=== PATIENT | male | born 1955 | race Caucasian/White ===

== ENCOUNTER → 2018-06-07 | Outpatient (CLI) | payer BC ==
[2018-06-07 11:53] LABS: HCT 48.1 % (39.0-53.0); HGB 15.8 gm/dL (13.0-17.5); MCH 29.5 pg (25.0-35.0); MCHC 32.9 g/dL (31.0-37.0); MCV 89.6 fL (80.0-100.0); Mean Platelet Volume 8.3; Platelet Count 398 k/uL (150-450); RBC 5.37 m/uL (4.30-5.90); RDW 14.7 % (11.5-15.5); WBC 6.1 k/uL (3.8-10.6)
[2018-06-07 11:58] LABS: Appearance,Urine Clear (Clear); Bilirubin,Urine Negative (Negative); Blood,Urine Negative (Negative); Color,Urine Yellow; Glucose,Urine (UA) Negative (Negative); Ketones,Urine Negative (Negative); Leukocyte Esterase,Urine Negative (Negative); Nitrite,Urine Negative (Negative); PH, Urine 6.5 (5.0-8.0); Protein,Urine Negative (Negative); Specific Gravity,Urine 1.015 (1.001-1.035); Urobilinogen,Urine <2.0 mg/dL (<2.0)
[2018-06-07 12:00] LABS: ALT 46 U/L (21-72); AST 29 U/L (17-59); Albumin 4.1 g/dL (3.5-5.0); Alkaline Phosphatase 63 U/L (38-126); Anion Gap 4 mmol/L; Blood Urea Nitrogen 18 mg/dL (9-20); Calcium 9.5 mg/dL (8.4-10.2); Carbon Dioxide 32 mmol/L (22-30); Chloride 104 mmol/L (98-107); Glucose 93 mg/dL (74-99); Sodium 140 mmol/L (137-145)
[2018-06-07 12:01] LABS: INR 2.3 (<1.2); Partial Thromboplastin Time 35.4 sec (22.0-30.0); Prothrombin Time 22.8 sec (9.0-12.0)
== END | disposition home or self-care (01) ==
LOC: LABWHC1 10:26
PROVIDERS: ATTEND Orthopaedic Surgery
DX: Z01.812 Encounter for preprocedural laboratory examination (principal); M16.11 Unilateral primary osteoarthritis, right hip
CPT/HCPCS: 36415; 80053; 81003; 85027; 85610; 85730; 87070

== ENCOUNTER 2018-06-14 05:48 | Inpatient (IN) | payer BC ==
[~2018-06-14 05:48] MED LIST: ACETAMINOPHEN TAB 500 MG TAB PO ONE; MELOXICAM 7.5 MG TAB PO ONE; TRANEXAMIC ACID 1,000 MG in SODIUM CHLORIDE 0.9% 100 ML IVPB ONE; ceFAZolin IN SWFI 2 GM/20 ML SYRINGE IVP ONE
[2018-06-14] MEDS ORDERED: ROPIVACAINE 246.25 MG, EPINEPHrine 0.5 MG, KETOROLAC 30 MG, cloNIDine HCL/PF 80 MCG, WA... MISCELLANE ONE ×5 (05:56)
[2018-06-14] MEDS ORDERED: DEXAMETHASONE SOD PHOSPHATE 10 MG/ML 1 ML VIAL IV ONE (06:19)
[2018-06-14] MEDS ORDERED: ONDANSETRON 4 MG/2 ML VIAL IVP ONE (06:19)
[2018-06-14] MEDS ORDERED: LIDOCAINE 1% 20 ML VIAL (10MG/ML) FOR IV START INTRADERMA PRN (06:19)
[2018-06-14] MEDS ORDERED: HYDROmorphone 0.5 MG/0.5 ML SYRINGE IVP PRN ×3 (06:19→06:57)
[2018-06-14] MEDS: LACTATED RINGERS 1,000 ML IV SCH (06:40)
[2018-06-14 06:47] LABS: Prothrombin Time 10.6 sec (9.0-12.0)
[2018-06-14] MEDS ORDERED: HYDROcodone/APAP 5-325MG 1 EACH TAB PO PRN (06:57)
[2018-06-14] MEDS ORDERED: ONDANSETRON 4 MG/2 ML VIAL IVP PRN (06:57)
[2018-06-14] MEDS ORDERED: DIAZEPAM 5 MG TAB PO PRN (06:57)
[2018-06-14] MEDS ORDERED: NALOXONE 0.4 MG/ML 1 ML VIAL IV PRN (06:57)
[2018-06-14] MEDS ORDERED: MAGNESIUM HYDROXIDE 2,400 MG/10 ML CUP PO PRN (06:57)
[2018-06-14] MEDS ORDERED: hydrOXYzine PAMOATE 25 MG CAP PO PRN (06:57)
[2018-06-14] MEDS ORDERED: TRANEXAMIC ACID 1,000 MG/10 ML VIAL ONE (07:00)
[2018-06-14] MEDS ORDERED: GLYCOPYRROLATE 0.2 MG/ML 2 ML VIAL ONE (07:00)
[2018-06-14] MEDS ORDERED: SODIUM CHLORIDE 0.9% 100 ML BAG ONE (07:00)
[2018-06-14] MEDS ORDERED: fentaNYL (PF) 50 MCG/ML 2 ML AMP ONE (07:00)
[2018-06-14] MEDS ORDERED: LACTATED RINGERS 1,000 ML BAG IV ONE (07:00)
[2018-06-14] MEDS ORDERED: MIDAZOLAM 2 MG/2 ML VIAL ONE (07:00)
[2018-06-14] MEDS ORDERED: diphenhydrAMINE 50 MG/ML 1 ML VIAL ONE (07:00)
[2018-06-14] MEDS ORDERED: HEPARIN SODIUM,PORCINE 10,000 UNIT/ML 1 ML VIAL ONE (07:00)
[2018-06-14] MEDS ORDERED: ePHEDrine SULFATE/0.9% NACL/PF 50 MG/5 ML SYRINGE IV ONE (07:00)
[2018-06-14] MEDS ORDERED: ceFAZolin 3,000 MG in SODIUM CHLORIDE 0.9% IRRIGATIO 3,000 ML IRRIGATION ONE (07:40)
--- NOTE | 2018-06-14 08:43 | XR ---
Limited right hip HISTORY: Hip replacement 2 intraoperative C-arm images document the procedure.
--- NOTE | 2018-06-14 08:45 | FL ---
Fluoroscopy HISTORY: Anterior hip replacement 63 seconds fluoroscopy time supplied to the referring clinician. 2 intraoperative C-arm images docum ent the procedure. See dictated report from orthopedic surgery.
--- NOTE | 2018-06-14 08:49 | P.OP ---
Date of Procedure: 06/14/18 Preoperative Diagnosis: Severe osteoarthritis right hip Postoperative Diagnosis: Severe osteoarthritis right hip Procedure(s) Performed: Right total hip arthroplasty with a direct anterior approach Implants: Wiseman and nephew Polarstem size 5 standard Wiseman & Nephew R3, 3 hole acetabular shell, 54 mm Wiseman [employer] Nephew reflection 6.5 mm cancellus screw, 20 mm 2 Wiseman [employer] Nephew R3, XLPE 20 acetabular liner Wiseman & Nephew Oxinium femoral head 36 m, +4 All components were press-fit. The articulation is Oxinium on polyethylene. Anesthesia: spinal Surgeon: Britton Duron Garage Worker #1: Trina Delgadillo Estimated Blood Loss (ml): 900 (365 mL returned with Cell Saver) Pathology: other (Femoral head) Condition: stable Disposition: PACU Indications for Procedure: After failure of conservative treatment we discussed the surgical and nonsurgical treatment options at length. Patient wishes to proceed with a total hip arthroplasty with a direct anterior approach. Complications specific to this procedure were discussed at length, including but not limited to infection, leg length discrepancy, dislocation, and nerve injury. Patient is aware of all these complications and informed consent was obtained Operative Findings: The operative findings are consistent with severe osteoarthritis of the right hip Description of Procedure: Patient was seen and evaluated in the preoperative area, consent was reviewed, and the surgical site was marked with a skin marker. Patient was then brought to the operating room and given prophylactic antibiotics intravenously. 1 g of Tranexamic acid was also given. A spinal anesthetic was administered by the anesthesia department. The patient was then placed on the Cherokee table with the bony prominences well-padded. The hip area was then prepped and draped in usual sterile fashion. A universal timeout was then performed, which confirmed the patient's name, surgical site, ALLERGIES, and procedure being performed. Next the incision site was located at 1 cm distal and 1 cm lateral to the anterior superior iliac spine. The skin and subcutaneous tissues were sharply incised. Incision was carefully dissected down to the fascia overlying the tensor fascia eunice muscle. This fascia was then incised in line with the incision. Next, using blunt finger dissection, the tensor fascia eunice muscle was dissected off its investing fascia. The muscle was then carefully retracted laterally with a cobra retractor over the lateral neck of the femur. Next, the circumflex vessels were identified and cauterized using the AquaMantis device. The anterior hip capsule was then exposed. The capsule was then opened and an inverted T fashion. Cobra retractors were then placed intracapsularly. The proximal femur was then visualized. The femoral neck was then osteotomized appropriate level above the lesser trochanter. Small amount of traction was placed with the Cherokee table. A small wedge of bone was then removed from the remaining femoral head. Next, using a corkscrew femoral head was easily removed from the acetabulum. On gross visual inspection, the femoral head had complete loss of articular cartilage in m ultiple periarticular osteophytes. Attention was then turned to the acetabulum. the acetabulum was exposed and any remaining labrum was excised. Sequential reaming of the acetabulum was performed using fluoroscopic guidance. When the appropriate size was reached, a trial was then placed. The position and fit of the trial was checked with fluoroscopy. The trial was then removed. Then, using fluoroscopic guidance, the final implant was impacted at 20 of anteversion and 40 of abduction, and fully seated in the acetabulum. 2 screws were then placed in the acetabulum. Again fluoroscopy was used to check position of the screws. Next, the liner was then impacted, with a 20 elevated liner located in the anterior superior quadrant. Component locking was confirmed. Attention was then directed to the femur. With the aid of the Cherokee table, the femur was externally rotated to approximately 130, extended, and abducted under the opposite leg. A side hook was then placed under the proximal femur, and the side hook elevator was used to elevate the proximal femur. Retractors were then placed. A capsular release was performed, as well as a release of the conjoined tendon, which afforded excellent visualization of the proximal femur. Next, a box osteotome was used to lateralize the proximal femur. A sample maker hand was then used to locate the femoral canal. Sequential broaching was then performed with appropriate size which afforded excellent fixation in the proximal femur. A trial was then placed with appropriate head and neck, and the hip was gently reduced with the aid of the Cherokee table. Fluoroscopy was then used to check position of the components, as well as to ensure equal leg lengths. The hip was then gently dislocated and the trials were then removed. Final implants were then impacted and the hip was again reduced. Final fluoroscopic x-rays confirmed that the components were in anatomic position, as well as equal leg lengths. The hip was also taken through range of motion, and found to be stable. The hip was then copiously irrigated with antibiotic solution with pulsatile lavage. The hip was then irrigated with Irrisept solution. The soft tissues were then injected with a ropivacaine solution, which consisted of 246.25 mg of ropivacaine, 0.5 mg of epinephrine, 30 mg of Toradol, 80 g of clonidine, and 48.45 mL of sterile water, for a total of 100 mL of fluid injected. A second dose of 1 g of Tranexamic acid was also given. the fascia was then closed with 2-0 strata fix suture. The subcutaneous tissue was closed with 3-0 Vicryl. The subcuticular tissue was closed with 3-0 strata fix suture. The skin was then closed with Dermabond glue and a sterile silver dressing. The patient was then transferred to the recovery room in stable c ondition. The medical assistant per diem SHAHEED Thurman was required due to the complexity of surgery, and the need for skilled expanded function dental assistant for positioning, draping, exposure, retraction, and closure of the wound.
--- NOTE | 2018-06-14 09:31 | XR ---
Limited right hip HISTORY: Status post right hip arthroplasty Single frontal view of the right hip Patient is post right hip arthroplasty. There is anatomic alignment. Lucency present in the soft tiss ues. Probable vascular calcifications also seen. IMPRESSION: Orthopedic follow-up.
[2018-06-14 10:02] VITALS: BMI 34.7
[2018-06-14] MEDS: HYDROcodone/APAP 5-325MG 1 EACH TAB PO PRN ×2 (11:16→19:19)
[2018-06-14] MEDS ORDERED: SODIUM CHLORIDE 0.9% 500 ML IV ONE (11:26)
[2018-06-14] MEDS: SODIUM CHLORIDE 0.9% 1,000 ML IV SCH ×2 (11:28→23:10)
--- NOTE | 2018-06-14 14:17 | P.CONS ---
History of Present Illness - Reason for Consult Consult date: 06/14/18 Medical management - History of Present Illness This is a 62-year-old male patient of Dr. Greene with a past medical history of DVT with first episode 39 years ago and DVT with pulmonary embolism in 2005 on Coumadin with Lovenox as bridge prior to surgery, osteoarthritis, benign prostatic hypertrophy, gastroesophageal reflux disease, hypertension not on medication, COPD, remote history of tobacco use and dependence. Patient has been brought into hospital by Dr. Duron status post right total hip arthroplasty with anterior approach. Patient has been afebrile, heart rate in the 50s, blood pressure 97/58, pulse ox 93% on room air. Patient had one episode of vomiting in OR and denies nausea at this time. Patient denies any lightheadedness or dizziness. Review of Systems All systems: negative Constitutional: Denies anorexia, Denies chills, Denies fatigue, Denies fever, Denies malaise, Denies poor appetite, Denies weight loss Eyes: denies blurred vision, denies pain Ears, nose, mouth and throat: Denies dental pain, Denies dysphagia, Denies headache, Denies mouth pain, Denies sore throat, Denies vertigo Cardiovascular: Denies chest pain, Denies decreased exercise tolerance, Denies dyspnea on exertion, Denies leg edema, Denies lightheadedness, Denies paroxysmal nocturnal dyspnea, Denies shortness of breath, Denies syncope Respiratory: Denies cough, Denies cough with sputum, Denies dyspnea, Denies excessive sputum, Denies hemoptysis, Denies home oxygen, Denies sleep apnea, Denies wheezing Gastrointestinal: Denies abdominal pain, Denies diarrhea, Denies loss of appetite, Denies melena, Denies nausea, Denies vomiting Genitourinary: Denies dysuria, Denies hematuria, Denies urinary frequency, Denies urinary retention Musculoskeletal: Denies frequent falls, Denies gait dysfunction, Denies myalgias Integumentary: Reports wounds, Denies pruritus, Denies rash Neurological: Denies aphasia, Denies change in mentation, Denies confusion, Denies double vision, Denies numbness, Denies vertigo, Denies weakness Psychiatric: Denies anxiety, Denies depression Endocrine: Denies fatigue, Denies weight change Past Medical History Past Medical History: Deep Vein Thrombosis (DVT), Pulmonary Embolus (PE) Additional Past Medical History / Comment(s): DVT&PE-2005,varicose veins History of Any Multi-Drug Resistant Organisms: None Reported Past Surgical History: Joint Replacement, Orthopedic Surgery Additional Past Surgical History / Comment(s): rt knee x2,rt knee replaced, right total hip replacement anterior approach. Past Anesthesia/Blood Transfusion Reactions: No Reported Reaction Additional Past Anesthesia/Blood Transfusion Reaction / Comm: no blood transfusion Smoking Status: Former smoker Additional Past Alcohol Use History / Comment(s): Patient was a smoker of one pack per day for 33 years and quit in 2005. He denies any illicit drug use, marijuana use or alcohol use. Patient does not have oxygen, nebulizers CPAP. - Past Family History Mother Family Medical History: No Reported History Additional Family Medical History / Comment(s): Mother is 87 years of age with history of hypertension and CABG. Father Family Medical History: Cancer Additional Family Medical History / Comment(s): Father at age 67 from lung cancer. Sister(s) Additional Family Medical History / Comment(s): Patient has 3 sisters with no major medical problems. Patient is 2 brothers with no major medical problems. Patient has 2 daughters with no major medical problems. Medications and Allergies Home Medications Medication Instructions Recorded Confirmed Type Citalopram Hydrobromide 20 mg PO HS 06/03/18 06/14/18 History [Citalopram HBr] Enoxaparin [Lovenox] 100 mg SQ DAILY 06/03/18 06/14/18 History Simvastatin [Zocor] 20 mg PO HS 06/03/18 06/14/18 History Warfarin [Coumadin] 5 mg PO FR 06/03/18 06/14/18 History Warfarin [Coumadin] 10 mg PO SUMOTUWETHSA 06/03/18 06/14/18 History Allergies Allergy/AdvReac Type Severity Reaction Status Date / Time No Known Allergies Allergy Verified 06/14/18 10:02 Physical Exam Vitals: Vital Signs Temp Pulse Pulse Resp BP BP Pulse Ox 06/14/18 09:40 51 L 16 97/58 93 L 06/14/18 09:25 54 L 16 95/60 92 L 06/14/18 09:10 56 L 16 96/60 94 L 06/14/18 08:55 98 F 61 16 96/58 93 L 06/14/18 06:21 97.8 F 55 L 16 142/81 96 Intake and Output 06/13/18 06/14/18 06/14/18 22:59 06:59 14:59 Intake Total 50 801 Output Total 900 Balance 50 -99 Intake: IV 50 801 Output: Estimated Blood Loss 900 Gen: This is a 62-year-old male patient. Patient is resting in bed and appears to be comfortable and in no acute distress. HEENT: Head is atraumatic, normocephalic. Pupils equal, round. Sclerae is anicteric. NECK: Supple. No JVD. No lymphadenopathy. No thyromegaly. LUNGS: Clear to auscultation. No wheezes or rhonchi. No intercostal retractions. HEART: Regular rate and rhythm. No murmur. ABDOMEN: Soft. Bowel sounds are present. No masses. No tenderness. EXTREMITIES: No pedal edema. No calf tenderness. Small wound to right anterior hip. No breakthrough bleeding or drainage. NEUROLOGICAL: Patient is awake, alert and oriented x3. Cranial nerves 2 through 12 are grossly intact. Assessment and Plan Plan: 1. Osteoarthritis status post right total knee arthroplasty, anterior approach. Continue current pain management per orthopedics. Continue PT OT and activity per orthopedics. Incentive spirometry to reduce incidence of atelectasis and hospital-acquired pneumonia. DVT prophylaxis is Coumadin. 2. History of DVT and pulmonary embolism on chronic Coumadin. Coumadin resumed. 3. Remote history of tobacco use and dependence, stable. 4. Hypertension, not on medication. Patient is currently hypotensive. 500 mL fluid bolus. 5. Benign prostatic hypertrophy. Monitor for urinary retention. 6. Gastroesophageal reflux disease and GI prophylaxis. Pepcid. 7. DVT prophylaxis. Coumadin. Discharge plan: To be determined Impression and plan of care have been directed as dictated by the signing physician. Kalpana Yusuf nurse practitioner acting as scribe for signing physician.
[2018-06-14] MEDS: HYDROmorphone 1 MG/ML 1 ML SYRINGE IVP PRN (15:56)
[2018-06-14] MEDS: ceFAZolin IN SWFI 2 GM/20 ML SYRINGE IVP SCH ×2 (16:32→23:10)
[2018-06-14] MEDS ORDERED: WARFARIN 10 MG TAB PO ONE (18:00)
[2018-06-14] MEDS: ENOXAPARIN 120 MG/0.8 ML SYRINGE SQ SCH (20:00)
[2018-06-14] MEDS ORDERED: SENNOSIDES-DOCUSATE SODIUM 1 EACH TAB PO SCH (21:00)
[2018-06-15] MEDS: HYDROcodone/APAP 5-325MG 1 EACH TAB PO PRN ×3 (00:23→13:09)
[2018-06-15] MEDS: HYDROmorphone 1 MG/ML 1 ML SYRINGE IVP PRN (03:54)
[2018-06-15 07:45] LABS: Prothrombin Time 10.7 sec (9.0-12.0)
[2018-06-15 07:56] LABS: Basophils % (A) 0 %; Eosinophils # (A) 0.1 k/uL (0-0.7); Eosinophils % (A) 1 %; HCT 37.9 % (39.0-53.0); Lymphocytes # (A) 0.8 k/uL (1.0-4.8); Lymphocytes % (A) 9 %; MCH 29.5 pg (25.0-35.0); MCHC 32.4 g/dL (31.0-37.0); MCV 90.9 fL (80.0-100.0); Mean Platelet Volume 7.6; Monocytes # (A) 0.7 k/uL (0-1.0); Monocytes % (A) 8 %; Neutrophils % (A) 81 %; Platelet Count 395 k/uL (150-450); RBC 4.17 m/uL (4.30-5.90); RDW 14.8 % (11.5-15.5); WBC 8.7 k/uL (3.8-10.6)
[2018-06-15 07:58] LABS: Anion Gap 4 mmol/L; Blood Urea Nitrogen 17 mg/dL (9-20); Calcium 8.8 mg/dL (8.4-10.2); Carbon Dioxide 29 mmol/L (22-30); Chloride 103 mmol/L (98-107); Glucose 120 mg/dL (74-99); Potassium 4.6 mmol/L (3.5-5.1); Sodium 136 mmol/L (137-145)
[2018-06-15 07:59] VITALS: RESP 17
[2018-06-15 08:00] LABS: HGB 12.3 gm/dL (13.0-17.5)
[2018-06-15] MEDS: ENOXAPARIN 120 MG/0.8 ML SYRINGE SQ SCH (08:00)
[2018-06-15] MEDS ORDERED: FAMOTIDINE 20 MG TAB PO SCH (09:00)
--- NOTE | 2018-06-15 09:28 | P.PN ---
Subjective Progress Note Date: 06/15/18 This is a 62-year-old male who is status post right total hip arthroplasty. This is postoperative day #1 and patient is seen and evaluated at bedside with Dr. Britton Duron. Patient states that his pain is very well controlled and he has been up and walking with physical therapy. Patient does complain of urinary retention and states that he required straight catheterization 2 times overnight. Patient states that this has happened to him previously after his knee replacement. Patient denies any fever/chills, numbness, weakness, tingling, abdominal pain, shortness of breath or chest pain. Objective - Vital Signs Vital signs: Vital Signs Temp 99.6 F 06/15/18 07:00 Pulse 74 06/15/18 07:00 Resp 17 06/15/18 07:00 BP 108/50 06/15/18 07:00 Pulse Ox 92 L 06/15/18 07:00 Intake & Output 06/14/18 06/15/18 06/15/18 18:59 06:59 18:59 Intake Total 1721 210 Output Total 1600 650 Balance 121 -440 Intake: IV 801 Intake, IV Titration 210 Amount Sodium Chloride 0.9% 1, 210 000 ml @ 70 mls/hr IV . [id number] [facility] Rx#:[id number] Oral 920 Output: Urine 700 650 Straight 700 650 Estimated Blood Loss 900 - Exam Vital signs are stable. Patient is in no acute distress and is alert and oriented 3. Calf is soft and nontender to palpation. Dressing is clean, dry, and intact. Patient has full foot and ankle motion without pain or difficulty. Neurovascular status and circulatory status are intact. - Labs CBC & Chem 7: 06/15/18 07:04 06/15/18 07:04 Labs: Abnormal Lab Results - Last 24 Hours (Table) 06/15/18 06/15/18 Range/Units 07:04 07:04 RBC 4.17 L (4.30-5.90) m/uL Hgb 12.3 L D (13.0-17.5) gm/dL Hct 37.9 L (39.0-53.0) % Lymphocytes # 0.8 L (1.0-4.8) k/uL Sodium 136 L (137-145) mmol/L Glucose 120 H (74-99) mg/dL Assessment and Plan Assessment: Benign prosthetic hyperplasia GERD History of DVT and PE in 2006 Hypercholesterolemia Plan: Continue routine postop care and pain control. Continue anticoagulation, patient is on Coumadin. Weightbearing as tolerated with a walker. Leave dressing in place for 10 days. Appreciate input from medicine regarding urinary retention. Possible discharge home with homecare today if patient is able to void, otherwise possibly tomorrow.
[2018-06-15] MEDS: LACTATED RINGERS 1,000 ML IV SCH (09:42)
[2018-06-15] MEDS ORDERED: TAMSULOSIN 0.4 MG CAP.ER.24H PO STA (11:26)
[2018-06-15] MEDS: BETHANECHOL 25 MG TAB PO SCH ×2 (12:12→17:04)
[2018-06-15] MEDS ORDERED: BETHANECHOL 25 MG TAB PO STA (14:15)
[2018-06-15] MEDS: SODIUM CHLORIDE 0.9% 1,000 ML IV SCH (14:24)
--- NOTE | 2018-06-15 15:45 | P.PN ---
Subjective Progress Note Date: 06/15/18 This is a 62-year-old male patient of Dr. Greene with a past medical history of DVT with first episode 39 years ago and DVT with pulmonary embolism in 2005 on Coumadin with Lovenox as bridge prior to surgery, osteoarthritis, benign prostatic hypertrophy, gastroesophageal reflux disease, hypertension not on medication, COPD, remote history of tobacco use and dependence. Patient has been brought into hospital by Dr. Duron status post right total hip arthroplasty with anterior approach. Patient has been afebrile, heart rate in the 50s, blood pressure 97/58, pulse ox 93% on room air. Patient had one episode of vomiting in OR and denies nausea at this time. Patient denies any lightheadedness or dizziness. 06/15: Patient has been afebrile, heart rate running in the 50s to 70s, pulse ox 92% on room air, blood pressure 108/50. White count is normal, hemoglobin 12.3, creatinine 0.73, blood sugar 120. Patient has been cleared for discharge by orthopedics. Patient has required straight cath and Jacobson catheter was placed for urinary retention. We'll plan to discontinue this and start the patient on Flomax 0.4 mg daily and Urecholine. Patient to be monitored until later this afternoon, check post void residual and discharged home. INR is 1.0. Patient to continue Coumadin and Lovenox. Review of Systems All systems: negative Constitutional: Denies anorexia, Denies chills, Denies fatigue, Denies fever, Denies malaise, Denies poor appetite, Denies weight loss Eyes: denies blurred vision, denies pain Ears, nose, mouth and throat: Denies dental pain, Denies dysphagia, Denies headache, Denies mouth pain, Denies sore throat, Denies vertigo Cardiovascular: Denies chest pain, Denies decreased exercise tolerance, Denies dyspnea on exertion, Denies leg edema, Denies lightheadedness, Denies paroxysmal nocturnal dyspnea, Denies shortness of breath, Denies syncope Respiratory: Denies cough, Denies cough with sputum, Denies dyspnea, Denies excessive sputum, Denies hemoptysis, Denies home oxygen, Denies sleep apnea, Denies wheezing Gastrointestinal: Denies abdominal pain, Denies diarrhea, Denies loss of appetite, Denies melena, Denies nausea, Denies vomiting Genitourinary: Denies dysuria, Denies hematuria, Denies urinary frequency, reports urinary retention Musculoskeletal: Denies frequent falls, Denies gait dysfunction, Denies myalgias Integumentary: Reports wounds, Denies pruritus, Denies rash Neurological: Denies aphasia, Denies change in mentation, Denies confusion, Denies double vision, Denies numbness, Denies vertigo, Denies weakness Psychiatric: Denies anxiety, Denies depression Endocrine: Denies fatigue, Denies weight change Objective - Vital Signs Vital signs: Vital Signs Temp 99.6 F 06/15/18 07:00 Pulse 74 06/15/18 07:00 Resp 17 06/15/18 07:40 BP 108/50 06/15/18 07:00 Pulse Ox 92 L 06/15/18 07:00 Intake & Output 06/14/18 06/15/18 06/15/18 18:59 06:59 18:59 Intake Total 1721 210 Output Total 1600 650 Balance 121 -440 Intake: IV 801 Intake, IV Titration 210 Amount Sodium Chloride 0.9% 1, 210 000 ml @ 70 mls/hr IV . [id number] [facility] Rx#:[id number] Oral 920 Output: Urine 700 650 Straight 700 650 Estimated Blood Loss 900 Other: Voiding Method Indwelling Catheter - Exam Gen: This is a 62-year-old male patient. Patient is resting in bed and appears to be comfortable and in no acute distress. HEENT: Head is atraumatic, normocephalic. Pupils equal, round. Sclerae is anicteric. NECK: Supple. No JVD. No lymphadenopathy. No thyromegaly. LUNGS: Clear to auscultation. No wheezes or rhonchi. No intercostal retractions. HEART: Regular rate and rhythm. No murmur. ABDOMEN: Soft. Bowel sounds are present. No masses. No tenderness. EXTREMITIES: No pedal edema. No calf tenderness. Small wound to right anterior hip. No breakthrough bleeding or drainage. NEUROLOGICAL: Patient is awake, alert and oriented x3. Cranial nerves 2 through 12 are grossly intact. - Labs CBC & Chem 7: 06/15/18 07:04 06/15/18 07:04 Labs: Abnormal Lab Results - Last 24 Hours (Table) 03/13/19 03/13/19 Range/Units 07:04 07:04 RBC 4.17 L (4.30-5.90) m/uL Hgb 12.3 L D (13.0-17.5) gm/dL Hct 37.9 L (39.0-53.0) % Lymphocytes # 0.8 L (1.0-4.8) k/uL Sodium 136 L (137-145) mmol/L Glucose 120 H (74-99) mg/dL Assessment and Plan Plan: 1. Osteoarthritis status post right total knee arthroplasty, anterior approach. Continue current pain management per orthopedics. Continue PT OT and activity per orthopedics. Incentive spirometry to reduce incidence of atelectasis and hospital-acquired pneumonia. DVT prophylaxis is Coumadin. 2. History of DVT and pulmonary embolism on chronic Coumadin. Coumadin resumed. 3. Remote history of tobacco use and dependence, stable. 4. Hypertension, not on medication. Patient is currently hypotensive. 500 mL fluid bolus. 5. Benign prostatic hypertrophy. Monitor for urinary retention. 6. Gastroesophageal reflux disease and GI prophylaxis. Pepcid. 7. DVT prophylaxis. Coumadin. 8. Urinary retention. Urecholine and Flomax started. Discharge plan: home Impression and plan of care have been directed as dictated by the signing physician. Kalpana Yusuf nurse practitioner acting as scribe for signing physician.
[2018-06-15 15:58] VITALS: BP 111/65; PULSE 70; TEMP 98
[2018-06-15] MEDS ORDERED: WARFARIN 10 MG TAB PO ONE (18:00)
[2018-06-16] MEDS ORDERED: TAMSULOSIN 0.4 MG CAP.ER.24H PO SCH (08:30)
== END 2018-06-15 17:17 | disposition home health service (06) | DRG 470 ==
LOC: 2ORMAIN 05:48 → 4SSUR 09:11
PROVIDERS: ADMIT Orthopaedic Surgery; ATTEND Orthopaedic Surgery
PROC: 30233N0 Transfusion of Autologous Red Blood Cells into Peripheral Vein, Percutaneous Approach (ICD-10-PCS; 2018-06-14)
PROC: 0SR906A Replacement of Right Hip Joint with Oxidized Zirconium on Polyethylene Synthetic Substitute, Uncemented, Open Approach (ICD-10-PCS; principal; 2018-06-14 07:00)
DX: M16.11 Unilateral primary osteoarthritis, right hip (principal); E78.00 Pure hypercholesterolemia, unspecified; I10 Essential (primary) hypertension; N40.1 Benign prostatic hyperplasia with lower urinary tract symptoms; R33.8 Other retention of urine; K21.9 Gastro-esophageal reflux disease without esophagitis; E78.5 Hyperlipidemia, unspecified; J44.9 Chronic obstructive pulmonary disease, unspecified; I83.90 Asymptomatic varicose veins of unspecified lower extremity; Z79.01 Long term (current) use of anticoagulants; Z79.899 Other long term (current) drug therapy; Z86.718 Personal history of other venous thrombosis and embolism; Z86.711 Personal history of pulmonary embolism; Z87.891 Personal history of nicotine dependence; Z96.651 Presence of right artificial knee joint; Z82.49 Family history of ischemic heart disease and other diseases of the circulatory system; Z80.1 Family history of malignant neoplasm of trachea, bronchus and lung
CPT/HCPCS: 73501; 80048; 85025; 85610; 86850; 86891; 86900; 86901; 88300; 93005

== ENCOUNTER → 2023-02-15 | Outpatient (CLI) | payer BC, MEDICARE ==
[~2023-02-15] MED LIST changes: -ACETAMINOPHEN TAB 500 MG TAB PO ONE; -MELOXICAM 7.5 MG TAB PO ONE; +SODIUM CHLORIDE 0.9% 500 ML 500 ML in EMPTY BAG 1 BAG IV PRN; +SODIUM FERRIC GLUCONAT-SUCROSE 125 MG in SODIUM CHLORIDE 0.9% 100 ML IVPB NR; -TRANEXAMIC ACID 1,000 MG in SODIUM CHLORIDE 0.9% 100 ML IVPB ONE; -ceFAZolin IN SWFI 2 GM/20 ML SYRINGE IVP ONE
[2023-02-15 12:19] VITALS: BP 99/57; PULSE 58; RESP 16; TEMP 98.4
== END ==
LOC: PROCWHC3 11:40
PROVIDERS: ATTEND Physician Assistant
DX: D50.9 Iron deficiency anemia, unspecified (principal)
CPT/HCPCS: 96365; J2916

== ENCOUNTER 2024-01-17 10:38 | Day surgery (SDC) | payer MEDICARE ==
[2024-01-14 08:37] VITALS: BMI 31.5
[~2024-01-17 10:38] MED LIST changes: +ALPRAZolam 0.25 MG TAB PO PRN; +ALPRAZolam 0.5 MG TAB PO PRN; +EMPTY BAG 1 BAG with SODIUM CHLORIDE 0.9% 1,000 ML IV SCH; +HEPARIN SODIUM,PORCINE (1 ML) 2,500 UNIT in SODIUM CHLORIDE 0.9% 250 ML IRRIGATION PRN; +HEPARIN SODIUM,PORCINE 10,000 UNIT in SODIUM CHLORIDE 0.9% 1,000 ML IRRIGATION PRN; -SODIUM CHLORIDE 0.9% 500 ML 500 ML in EMPTY BAG 1 BAG IV PRN; -SODIUM FERRIC GLUCONAT-SUCROSE 125 MG in SODIUM CHLORIDE 0.9% 100 ML IVPB NR; +ZOLPIDEM 5 MG TAB PO PRN
[2024-01-17] MEDS: SODIUM CHLORIDE 0.9% 1,000 ML IV ONE (10:47)
[2024-01-17 11:15] VITALS: RESP 16; TEMP 97.6
[2024-01-17 11:15] LABS: Anisocytosis Slight; Basophils # (A) 0.1 k/uL (0-0.2); Basophils % (A) 1 %; Eosinophils # (A) 0.2 k/uL (0-0.7); Eosinophils % (A) 3 %; HCT 47.2 % (39.0-53.0); HGB 14.7 gm/dL (13.0-17.5); Hypochromasia Slight; Lymphocytes # (A) 1.2 k/uL (1.0-4.8); Lymphocytes % (A) 16 %; MCHC 31.1 g/dL (31.0-37.0); MCV 80.4 fL (80.0-100.0); Mean Platelet Volume 9.6; Microcytosis Slight; Monocytes # (A) 0.4 k/uL (0-1.0); Monocytes % (A) 5 %; Neutrophils # (A) 5.4 k/uL (1.3-7.7); Neutrophils % (A) 73 %; Platelet Count 498 k/uL (150-450); RBC 5.87 m/uL (4.30-5.90); RDW 17.4 % (11.5-15.5); WBC 7.4 k/uL (3.8-10.6)
[2024-01-17 11:28] LABS: African American GFR (CKD) >90 (>60 ml/min/1.73 sqM); Anion Gap 3 mmol/L; Blood Urea Nitrogen 18 mg/dL (9-20); Calcium 9.6 mg/dL (8.4-10.2); Carbon Dioxide 33 mmol/L (22-30); Chloride 106 mmol/L (98-107); Glucose 84 mg/dL (74-99); Non-African American GFR(CKD) 83 (>60 ml/min/1.73 sqM); Potassium 4.6 mmol/L (3.5-5.1); Sodium 142 mmol/L (137-145)
[2024-01-17] MEDS: LIDOCAINE 1% INJ 10MG/ML (20 ML MDV) SQ ONE (13:29)
[2024-01-17] MEDS: MIDAZOLAM 2 MG/2 ML VIAL IVP ONE (13:30)
[2024-01-17] MEDS: IOPAMIDOL-370 100ML BTL INJ ONE (13:54)
--- NOTE | 2024-01-17 14:11 | P.OP ---
Date of Procedure: 01/17/24 Description of Procedure: Preoperative diagnosis: Disabling claudication right lower extremity Postop diagnosis: Same, right superficial femoral artery occlusion with reconstitution below knee, AAA Procedure: Aortogram with bilateral lower extremity runoffs via left common femoral artery access under ultrasound guidance, selective right lower extremity angiogram, percutaneous closure of the left common femoral artery with Vascade device Surgeon: Gloria Anesthesia: Moderate sedation times 24 minutes Estimated blood loss: Minimal Complications: None Condition: Stable Findings: Aorta: Patent without any significant stenosis. There is dilation consistent with aneurysmal disease Iliacs: Bilateral common iliac, internal iliac and external iliac arteries are patent without any significant stenosis Femorals: Bilateral common femoral, profundus femoris arteries are patent without any stenosis noted. Superficial femoral artery on the right is occluded with reconstitution below knee at the tibial peroneal trunk. Left superficial femoral artery is patent with some disease noted throughout but no significant stenosis. Popliteal: Right popliteal artery is occluded with reconstitution noted below knee at the tibioperoneal trunk. Left popliteal artery is patent without any severe stenosis Tibials: Two-vessel takeoff at the right with diminished flow to the foot and one-vessel runoff to the ankle at the anterior tibial artery. Left below-knee tibial vessels with three-vessel runoff and two-vessel runoff to the ankle which is slowed due to lack of contrast. Operative narrative: After written informed consent was obtained the patient all risks benefits competitions were described the patient is brought to the [facility] and laid in a supine position. The area of the groin on the left was prepped and draped in the usual sterile fashion. Local anesthesia with moderate sedation was performed with continuous pulse ox monitoring and EKG monitoring. Utilizing ultrasound the left common femoral artery was visualized and shown to be patent without any significant plaque. Utilizing a multipurpose needle under ultrasound guidance the artery was accessed. Guidewire was placed followed by 5 Bruneian sheath. 035 Glidewire was then placed into the aorta followed by a RBI catheter. Angiogram was then obtained of the aorta. Catheter was then placed at the bifurcation and lower extremity runoffs were obtained. A guidewire was placed up and over into the iliac artery and followed by the RBI catheter and selective angiogram was obtained of the right lower extremity with multiple oblique images demonstrating complete occlusion of the superficial femoral artery without recon above the knee. Reconstitution was noted below the knee at the tibioperoneal trunk not suitable for endovascular repair. Once completed all guidewires, catheters and sheaths were removed, Vascade closure device was placed in normal fashion and pressure was placed for hemostasis. Patient tolerated procedure well was sent to PACU for recovery.
--- NOTE | 2024-01-17 14:28 | IR ---
EXAMINATION TYPE: IR angio abdominal w runoff DATE OF EXAM: 01/17/2024 COMPARISON: NONE HISTORY: Fluoroscopy time. Fluoroscopy was provided to the referring clinician. [facility], , 01/17/2024 2:26 PM
[2024-01-17 17:18] VITALS: BP 149/76; PULSE 50
== END 2024-01-17 17:06 | disposition home or self-care (01) ==
LOC: CATHCVL 10:38
PROVIDERS: ATTEND Surgery
CPT/HCPCS: 36246; 75625; 75716; 80048; 85025